=== PATIENT | male | born 1965 | race Native Hawaiian/Other Pacific Islander ===

== ENCOUNTER 2020-07-30 12:26 | Outpatient (CLI) | payer BC, OTHER | END 2020-07-30 19:37 | disposition home or self-care (01) | LOC: RAD 12:26 | PROVIDERS: ATTEND Physician Assistant | DX: M25.551 Pain in right hip (principal); M25.552 Pain in left hip ==

== ENCOUNTER 2020-11-29 11:03 | Outpatient (CLI) | payer BC, OTHER | END 2020-11-29 20:48 | disposition home or self-care (01) | LOC: RAD 11:03 | PROVIDERS: ATTEND Physician Assistant | DX: M25.552 Pain in left hip (principal) ==